=== PATIENT | female | born 1930 | race Caucasian/White ===

== ENCOUNTER 2017-07-22 06:43 | Inpatient (IN) | payer MEDICARE, OTHER ==
[~2017-07-22] VITALS: Ht 162.6 cm; Wt 79.4 kg
[2017-07-22 09:46] VITALS: BP 122/58; PULSE 62; RESP 18; TEMP 97.6; O2SAT 98
[2017-07-22] MEDS ORDERED: NALOXONE HCL 0.4 MG/ML AMP IV PUSH PRN (12:00)
[2017-07-22] MEDS ORDERED: BISACODYL 10 MG SUPP RECTAL PRN (12:00)
[2017-07-22] MEDS ORDERED: ONDANSETRON HCL 4 MG/2 ML VIAL IVP PRN (12:00)
[2017-07-22] MEDS ORDERED: MAGNESIUM HYDROXIDE SUSP 30 ML CUP PO PRN (12:00)
[2017-07-22] MEDS ORDERED: SODIUM CHLORIDE 0.9% FLUSH 10 ML FLUSH IV FLUSH PRN (12:00)
[2017-07-22] MEDS ORDERED: SENNOSIDES 8.6 MG TAB PO PRN (12:00)
--- NOTE | 2017-07-22 12:17 | HHI.HP ---
[facility] Service [facility] Primary Care Physician Unknown Admission Diagnosis Confusion Diagnoses: (1) Altered mental status (2) Abnormal urinalysis Chief Complaint: Confusion Travel History International Travel<30 Days: No Contact w/Intl Traveler <30 Da: No Traveled to Known Affected Are: No History of Present Illness This is a pleasant 87-year-old female patient with a known medical history of atrial fibrillation and history of CVA who presented to the ED with confusion. She arrived from her [facility] via private vehicle. Patient is seen in her room, awake and alert without confusion. Patient does admit to frequent UTIs in the past and typical presentation is confusion. She denies any dysuria. Does admit to poor appetite. She denies any recent fever, chills, shortness of breath, abdominal pain, nausea, vomiting or diarrhea. 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 Spoke to son and daughter in law later in the day who stated that she had a lengthy hospitalization at [facility] in [place] 2 months ago for UTI was discharged to rehab for a couple weeks ago and has recently returned home to her [facility] last week. She was given antibiotics and just finished them a week ago for UTI. Son states that her UTI is usually from E Coli and yeast. Patient usually does not have symptoms with UTIs except for confusion. Denies any dysuria. The family reports that patient usually has up to 12-15 recurrent UTIs per year. Review of Systems Constitutional: DENIES: Fever, Chills Eyes: DENIES: Diplopia Ears, nose, mouth, throat: DENIES: Hearing loss Respiratory: DENIES: Cough, Sputum production, Shortness of breath Cardiovascular: DENIES: Chest pain Gastrointestinal: DENIES: Abdominal pain, Black stools, Bloody stools, Constipation, Diarrhea, Nausea, Vomiting Immunologic/allergic: DENIES: Eczema Neurologic: DENIES: Abnormal gait Psychiatric: COMPLAINS OF: Confusion Except as stated in HPI: all other systems reviewed are Neg Past Family Social History Past Medical History Atrial fibrillation History of CVA 2011 Frequent urinary tract infections Past Surgical History Hysterectomy Reported Medications Needs updated medication reconciliation. Allergies: Coded Allergies: Sulfa (Sulfonamide Antibiotics) (Verified Allergy, Severe, 07/21/17) FACIAL SWELLING Active Ordered Medications Current Medications Medications (Trade) Dose Ordered Sig/Shobha Route Start Time Stop Time Status Last Admin Sodium Chloride 1,000 ml @ 75 mls/hr [id number] IV 07/22/17 11:55 UNV (NS Flush) 2 ml UNSCH PRN IV FLUSH 07/22/17 12:00 UNV (NS Flush) 2 ml BID IV FLUSH 07/22/17 21:00 UNV (Tylenol) 650 mg Q4H PRN PO 07/22/17 12:00 UNV (Zofran Inj) 4 mg Q6H PRN IVP 07/22/17 12:00 UNV (Narcan Inj) 0.4 mg UNSCH PRN IV PUSH 07/22/17 12:00 UNV (Kenyatta-Colace) 1 tab BID PO 07/22/17 21:00 UNV (Milk Of Magnesia Liq) 30 ml Q12H PRN PO 07/22/17 12:00 UNV (Senokot) 17.2 mg Q12H PRN PO 07/22/17 12:00 UNV (Dulcolax Supp) 10 mg DAILY PRN RECTAL 07/22/17 12:00 UNV (Lovenox Inj) 40 mg Q24H SQ 07/22/17 12:00 UNV Ceftriaxone Sodium 1000 mg/ Sodium Chloride 100 ml @ 200 mls/hr Q24H IV 07/22/17 12:15 UNV Family History Denies any significant family medical history. Social History Denies any current or previous tobacco use, alcohol use or illicit drug use. Physical Exam Vital Signs Vital Signs Date Time Temp Pulse Resp B/P (MAP) Pulse Ox O2 Delivery O2 Flow Rate FiO2 07/22/17 09:46 97.6 62 18 122/58 (79) 98 Physical Exam GENERAL: Well-nourished, well-developed patient in NAD. On room air SKIN: Warm and dry. No rash. HEAD: Normocephalic. Atraumatic. EYES: Pupils equal and round. No scleral icterus. No injection or drainage. ENT: No nasal bleeding or discharge. Mucous membranes pink and moist. NECK: Supple. Trachea midline. CARDIOVASCULAR: Regular rate and rhythm. S1, S2 noted. No murmur appreciated. RESPIRATORY: No accessory muscle use. Clear to auscultation. Breath sounds equal bilaterally. GASTROINTESTINAL: Abdomen soft, non-tender, nondistended. Normoactive bowel sounds x4. : Haider catheter NEUROLOGICAL: Awake and alert. No obvious cranial nerve deficits. Left upper and left lower extremities flaccid. Right upper and lower extremities 4/5. Normal speech. PSYCHIATRIC: Appropriate mood and affect; insight and judgment normal. Septic Shock Reassessment Septic shock perfusion: reassessment completed Caprini VTE Risk Assessment Caprini VTE Risk Assessment: Mod/High Risk (score >= 2) Caprini Risk Assessment Model Point Value = 1 Point Value = 2 Point Value = 3 Point Value = 5 Age 41-60 Minor surgery BMI > 25 kg/m2 Swollen legs Varicose veins or History of unexplained or recurrent spontaneous Oral contraceptives or hormone replacement Sepsis (< 1 month) Serious lung disease, including pneumonia (< 1 month) Abnormal pulmonary function Acute myocardial infarction Congestive heart failure (< 1 month) History of inflammatory bowel disease Medical patient at bed rest Age 61-74 Arthroscopic surgery Major open surgery (> 45 min) Laparoscopic surgery (> 45 min) Malignancy Confined to bed (> 72 hours) Immobilizing plaster cast Central venous access Age >= 75 History of VTE Family history of VTE Factor V Leiden Prothrombin [id number] Lupus anticoagulant Anticardiolipin antibodies Elevated serum homocysteine Heparin-induced thrombocytopenia Other congenital or acquired thrombophilia Stroke (< 1 month) Elective arthroplasty Hip, pelvis, or leg fracture Acute spinal cord injury (< 1 month) Prophylaxis Regimen Total Risk Factor Score Risk Level Prophylaxis Regimen 0-1 Low Early ambulation 2 Moderate Order ONE of the following: *Sequential Compression Device (SCD) *Heparin 5000 units SQ BID 3-4 Higher Order ONE of the following medications: *Heparin 5000 units SQ TID *Enoxaparin/Lovenox 40 mg SQ daily (WT < 150 kg, CrCl > 30 mL/min) *Enoxaparin/Lovenox 30 mg SQ daily (WT < 150 kg, CrCl > 10-29 mL/min) *Enoxaparin/Lovenox 30 mg SQ BID (WT < 150 kg, CrCl > 30 mL/min) AND/OR *Sequential Compression Device (SCD) 5 or more Highest Order ONE of the following medications: *Heparin 5000 units SQ TID (Preferred with Epidurals) *Enoxaparin/Lovenox 40 mg SQ daily (WT < 150 kg, CrCl > 30 mL/min) *Enoxaparin/Lovenox 30 mg SQ daily (WT < 150 kg, CrCl > 10-29 mL/min) *Enoxaparin/Lovenox 30 mg SQ BID (WT < 150 kg, CrCl > 30 mL/min) AND *Sequential Compression Device (SCD) Assessment and Plan Problem List: (1) Abnormal urinalysis ICD Code: R82.90 - Unspecified abnormal findings in urine Plan: Head CT was obtained and ED upon presentation, showing no acute abnormality. Confusion has resolved. Chest x-ray reviewed showing no acute abnormality. UA obtained which was abnormal, awaiting urine culture. Follow. Started on Rocephin IV until growth. Blood cultures pending, follow growth. Supplemental O2 as needed. Supportive care. Encourage by mouth intake. Continue IV fluids. Afebrile. Monitor for infection. WBC WNL. Vital signs stable (2) Altered mental status ICD Code: R41.82 - Altered mental status, unspecified Plan: Resolved. See treatment plan above. DVT prophylaxis: SCDs. Lovenox. Physician Certification 2 Midnight Certification Type: Admission for Inpatient Services Order for Inpatient Services The services are ordered in accordance with Medicare regulations or non- Medicare payer requirements, as applicable. In the case of services not specified as inpatient-only, they are appropriately provided as inpatient services in accordance with the 2-midnight benchmark. Estimated LOS (days): 2 2 days is the estimated time the patient will need to remain in the hospital, assuming treatment plan goals are met and no additional complications. Post-Hospital Plan: Not yet determined Janice Calderon Jul 22, 2017 12:17
[2017-07-22 13:00] VITALS: O2SAT 93
[2017-07-22] MEDS: ENOXAPARIN SODIUM 40 MG/0.4 ML SYRINGE SQ SCH (14:00)
[2017-07-22 14:03] VITALS: BP 113/47; PULSE 67; RESP 16; TEMP 96.7; O2SAT 96
[2017-07-22] MEDS: cefTRIAXone INJ 1,000 MG in SODIUM CHLORIDE 0.9% INJ 100 ML IV SCH (15:18)
[2017-07-22] MEDS: SODIUM CHLOR 0.45% 1000 ML INJ 1,000 ML IV SCH (15:19)
[2017-07-22 17:21] VITALS: BP 95/55; PULSE 65; RESP 16; TEMP 97; O2SAT 97
[2017-07-22 20:00] VITALS: BP 108/67; PULSE 79; RESP 18; TEMP 98.2; O2SAT 98
[2017-07-22] MEDS: DOCUSATE SODIUM 50 MG/SENNA 8.6 MG TAB PO SCH (20:03)
[2017-07-22] MEDS: SODIUM CHLORIDE 0.9% FLUSH 10 ML FLUSH IV FLUSH SCH (20:03)
[2017-07-22 20:32] VITALS: O2SAT 94
[2017-07-23] VITALS (7 sets, daily range): BP systolic 100–134; BP diastolic 50–68; PULSE 74–118; RESP 16–24; TEMP 97.4–100.8; O2SAT 94–98
[2017-07-23] MEDS ORDERED: ASPI-516 CHEW (01:52)
[2017-07-23] MEDS ORDERED: DULC5TAB PO (01:52)
[2017-07-23] MEDS ORDERED: CETI10 PO (01:52)
[2017-07-23] MEDS ORDERED: ACET-822 PO (01:52)
[2017-07-23] MEDS ORDERED: BUME1TAB PO (01:52)
[2017-07-23] MEDS ORDERED: VITA100064 PO (01:52)
[2017-07-23] MEDS ORDERED: METO50TA PO (01:52)
[2017-07-23] MEDS ORDERED: LIDO1PAD52 TOPICAL (01:52)
[2017-07-23] MEDS ORDERED: ATOR20TA15 PO (01:52)
[2017-07-23] MEDS ORDERED: LEXA20TA PO (01:52)
[2017-07-23] MEDS: SODIUM CHLOR 0.45% 1000 ML INJ 1,000 ML IV SCH ×2 (02:20→15:53)
[2017-07-23 08:07] LABS: AUTOMATED NEUTROPHIL # 3.5 TH/MM3 (1.8-7.7); BASOPHIL % 0.4 % (0.0-2.0); EOSINOPHIL # 0.2 TH/MM3 (0-0.4); EOSINOPHIL % 3.1 % (0.0-4.0); HEMATOCRIT 34.3 % (35.0-46.0); HEMOGLOBIN 10.8 GM/DL (11.6-15.3); LYMPH % 35.3 % (9.0-44.0); LYMPHOCYTE # 2.5 TH/MM3 (1.0-4.8); MEAN CELL VOLUME 90.8 FL (80.0-100.0); MEAN CORPUSCULAR HEMOGLOBIN 28.5 PG (27.0-34.0); MEAN CORPUSCULAR HGB CONC 31.4 % (32.0-36.0); MEAN PLATELET VOLUME 8.4 FL (7.0-11.0); MONO % 12.8 % (0.0-8.0); MONOCYTE # 0.9 TH/MM3 (0-0.9); NEUT % 48.4 % (16.0-70.0); PLATELET COUNT 242 TH/MM3 (150-450); RED BLOOD COUNT 3.78 MIL/MM3 (4.00-5.30); RED CELL DISTRIBUTION WIDTH 14.3 % (11.6-17.2); WHITE BLOOD COUNT 7.1 TH/MM3 (4.0-11.0)
[2017-07-23 08:31] LABS: BICARBONATE 29.1 MEQ/L (21.0-32.0)
[2017-07-23 08:34] LABS: CREATININE 0.72 MG/DL (0.50-1.00)
[2017-07-23] MEDS: DOCUSATE SODIUM 50 MG/SENNA 8.6 MG TAB PO SCH ×2 (08:56→21:29)
[2017-07-23] MEDS: SODIUM CHLORIDE 0.9% FLUSH 10 ML FLUSH IV FLUSH SCH ×2 (08:56→21:28)
--- NOTE | 2017-07-23 10:51 | HHI.PR ---
Subjective Remarks Follow-up UTI. Patient seen and examined, lying in bed comfortably on room air. In no apparent distress. Denies any acute events overnight. Does complain of some pain to her left lower extremity, this is chronic due to her disability. Vital signs are stable. Afebrile. Awaiting urine culture. On IV antibiotics. Objective Vitals Vital Signs Date Time Temp Pulse Resp B/P (MAP) Pulse Ox O2 Delivery O2 Flow Rate FiO2 07/23/17 08:00 97.9 79 24 118/56 (76) 96 07/23/17 04:00 98.7 74 18 115/55 (75) 94 07/23/17 00:00 97.4 76 16 118/56 (76) 97 07/22/17 20:32 94 21 07/22/17 20:00 98.2 79 18 108/67 (81) 98 07/22/17 17:21 97.0 65 16 95/55 (68) 97 07/22/17 14:03 96.7 67 16 113/47 (69) 96 07/22/17 13:00 93 21 I/O 07/22/17 07/22/17 07/22/17 07/23/17 07/23/17 07/23/17 07:00 15:00 23:00 07:00 15:00 23:00 Intake Total 500 ml 1000 ml Output Total 60 ml 600 ml Balance -60 ml -100 ml 1000 ml Intake Oral 500 ml IV Total 1000 ml Output Urine Total 60 ml 600 ml Result Diagram: 07/23/1736 07/23/17 0736 Objective Remarks GENERAL: Well-nourished, well-developed patient in NAD. On room air SKIN: Warm and dry. No rash. HEAD: Normocephalic. Atraumatic. EYES: Pupils equal and round. No scleral icterus. No injection or drainage. ENT: No nasal bleeding or discharge. Mucous membranes pink and moist. NECK: Supple. Trachea midline. CARDIOVASCULAR: Regular rate and rhythm. S1, S2 noted. No murmur appreciated. RESPIRATORY: No accessory muscle use. Clear to auscultation. Breath sounds equal bilaterally. GASTROINTESTINAL: Abdomen soft, non-tender, nondistended. Normoactive bowel sounds x4. : Haider catheter NEUROLOGICAL: Awake and alert. No obvious cranial nerve deficits. Left upper and left lower extremities flaccid. Right upper and lower extremities 4/5. Normal speech. PSYCHIATRIC: Appropriate mood and affect; insight and judgment normal. A/P Problem List: (1) Abnormal urinalysis ICD Code: R82.90 - Unspecified abnormal findings in urine Plan: Head CT was obtained and ED upon presentation, showing no acute abnormality. Confusion has resolved. Chest x-ray reviewed showing no acute abnormality. UA obtained which was abnormal, awaiting urine culture. Follow. Started on Rocephin IV until growth. Blood cultures pending, follow growth. Supplemental O2 as needed. Supportive care. Encourage by mouth intake. Continue IV fluids. Afebrile. Monitor for infection. WBC WNL. Vital signs stable. Requested records from previous hospitalization. (2) Altered mental status ICD Code: R41.82 - Altered mental status, unspecified Plan: Resolved. See treatment plan above. DVT prophylaxis: SCDs. Lovenox. Janice Calderon Jul 23, 2017 10:51
[2017-07-23] MEDS: ASPIRIN 81 MG CHEW TAB CHEW SCH (11:51)
[2017-07-23] MEDS: BUMETANIDE 1 MG TAB PO SCH (11:51)
[2017-07-23] MEDS: LIDOCAINE HCL 5% PATCH T-DERMAL SCH (11:52)
[2017-07-23] MEDS: cefTRIAXone INJ 1,000 MG in SODIUM CHLORIDE 0.9% INJ 100 ML IV SCH (14:18)
[2017-07-23] MEDS: ENOXAPARIN SODIUM 40 MG/0.4 ML SYRINGE SQ SCH (14:18)
[2017-07-23] MEDS: METOPROLOL TARTRATE 50 MG TAB PO SCH (21:28)
[2017-07-23] MEDS: ATORVASTATIN 20 MG TAB PO SCH (21:29)
[2017-07-23] MEDS: ACETAMINOPHEN 325 MG TAB PO PRN (22:27)
[2017-07-23] MEDS ORDERED: diphenhydrAMINE HCL 25 MG CAP PO ONE (23:00)
[2017-07-24] VITALS (8 sets, daily range): BP systolic 118–142; BP diastolic 56–80; PULSE 71–111; RESP 18–20; TEMP 97.1–99.2; O2SAT 95–98
[2017-07-24] MEDS: SODIUM CHLOR 0.45% 1000 ML INJ 1,000 ML IV SCH ×2 (04:46→18:02)
[2017-07-24] MEDS: METOPROLOL TARTRATE 50 MG TAB PO SCH ×2 (05:37→22:22)
[2017-07-24] MEDS: ACETAMINOPHEN 325 MG TAB PO PRN (05:38)
[2017-07-24] MEDS: CHOLECALCIFEROL (VIT D3) 1000 UNIT TAB PO SCH (08:17)
[2017-07-24] MEDS: CETIRIZINE HCL 10 MG TAB PO SCH (08:17)
[2017-07-24] MEDS: ASPIRIN 81 MG CHEW TAB CHEW SCH (08:17)
[2017-07-24] MEDS: DOCUSATE SODIUM 50 MG/SENNA 8.6 MG TAB PO SCH ×2 (08:17→22:22)
[2017-07-24] MEDS: BUMETANIDE 1 MG TAB PO SCH (08:18)
[2017-07-24] MEDS: SODIUM CHLORIDE 0.9% FLUSH 10 ML FLUSH IV FLUSH SCH ×2 (08:18→22:23)
[2017-07-24] MEDS: ESCITALOPRAM OXALATE 20 MG TAB PO SCH (08:26)
[2017-07-24] MEDS: LIDOCAINE HCL 5% PATCH T-DERMAL SCH (08:27)
--- NOTE | 2017-07-24 12:38 | HHI.PR ---
Subjective Remarks Follow-up UTI. Patient seen and examined, lying in bed with active hallucinations. Patient believes it was in the room, she was talking to them. Eventually during the conversation patient was able to reorient to person, place and time. Vital signs are stable. No acute events overnight. Continued IV fluids. Urine culture no growth, DC IV antibiotics. Objective Vitals Vital Signs Date Time Temp Pulse Resp B/P (MAP) Pulse Ox O2 Delivery O2 Flow Rate FiO2 07/24/17 12:00 97.2 75 20 125/57 (79) 96 07/24/17 08:00 97.4 71 20 134/66 (88) 98 07/24/17 04:00 97.1 111 18 138/80 (99) 95 07/24/17 00:00 97.6 77 20 118/56 (76) 96 07/23/17 21:11 94 21 07/23/17 20:00 99.0 118 20 134/58 (83) 95 07/23/17 20:00 111 07/23/17 16:00 100.8 111 16 115/68 (84) 94 I/O 07/23/17 07/23/17 07/23/17 07/24/17 07/24/17 07/24/17 06:59 14:59 22:59 06:59 14:59 22:59 Intake Total 1000 ml 760 ml 720 ml 1240 ml Output Total 1350 ml 1200 ml 1000 ml Balance 1000 ml -590 ml -480 ml 240 ml Intake Oral 660 ml 120 ml 240 ml IV Total 1000 ml 100 ml 600 ml 1000 ml Output Urine Total 1350 ml 1200 ml 1000 ml # Voids 5 # Bowel Movements 0 Result Diagram: 07/23/17 0736 07/23/17 0736 Objective Remarks GENERAL: Well-nourished, well-developed patient in NAD. On room air SKIN: Warm and dry. No rash. HEAD: Normocephalic. Atraumatic. EYES: Pupils equal and round. No scleral icterus. No injection or drainage. ENT: No nasal bleeding or discharge. Mucous membranes pink and moist. NECK: Supple. Trachea midline. CARDIOVASCULAR: Regular rate and rhythm. S1, S2 noted. No murmur appreciated. RESPIRATORY: No accessory muscle use. Clear to auscultation. Breath sounds equal bilaterally. GASTROINTESTINAL: Abdomen soft, non-tender, nondistended. Normoactive bowel sounds x4. : Haider catheter NEUROLOGICAL: Awake and alert. No obvious cranial nerve deficits. Left upper and left lower extremities flaccid. Right upper and lower extremities 4/5. Normal speech. A/P Problem List: (1) Abnormal urinalysis ICD Code: R82.90 - Unspecified abnormal findings in urine Plan: Head CT was obtained and ED upon presentation, showing no acute abnormality. Confusion has resolved. Chest x-ray reviewed showing no acute abnormality. UA obtained which was abnormal. Started on Rocephin IV until growth. Blood cultures pending, follow growth. Supplemental O2 as needed. Supportive care. Encourage by mouth intake. Continue IV fluids. Afebrile. Monitor for infection. WBC WNL. Vital signs stable. Requested records from previous hospitalization. Awaiting records. Urine culture no growth. DC IV antibiotics. (2) Altered mental status ICD Code: R41.82 - Altered mental status, unspecified Plan: See treatment plan above. Patient with hallucinations today. Will add TSH, magnesium and folate to labs today. Follow. Head CT on presentation, which was unremarkable. Possibly secondary to early onset dementia. DVT prophylaxis: SCDs. Lovenox. Janice Calderon Jul 24, 2017 12:38
[2017-07-24 13:53] LABS: AUTOMATED NEUTROPHIL # 5.4 TH/MM3 (1.8-7.7); BASOPHIL # 0.1 TH/MM3 (0-0.2); BASOPHIL % 0.8 % (0.0-2.0); EOSINOPHIL % 0.6 % (0.0-4.0); HEMOGLOBIN 11.1 GM/DL (11.6-15.3); LYMPH % 24.1 % (9.0-44.0); MEAN CELL VOLUME 89.6 FL (80.0-100.0); MEAN CORPUSCULAR HEMOGLOBIN 28.6 PG (27.0-34.0); MEAN CORPUSCULAR HGB CONC 31.9 % (32.0-36.0); MEAN PLATELET VOLUME 8.4 FL (7.0-11.0); MONO % 9.4 % (0.0-8.0); MONOCYTE # 0.8 TH/MM3 (0-0.9); NEUT % 65.1 % (16.0-70.0); PLATELET COUNT 295 TH/MM3 (150-450); RED CELL DISTRIBUTION WIDTH 13.7 % (11.6-17.2); WHITE BLOOD COUNT 8.3 TH/MM3 (4.0-11.0)
[2017-07-24] MEDS: ENOXAPARIN SODIUM 40 MG/0.4 ML SYRINGE SQ SCH (13:57)
[2017-07-24 14:06] LABS: BICARBONATE 28.5 MEQ/L (21.0-32.0); MAGNESIUM 2.3 MG/DL (1.5-2.5)
[2017-07-24 14:10] LABS: CREATININE 0.77 MG/DL (0.50-1.00)
[2017-07-24 16:31] LABS: FOLATE 17.7 NG/ML (3.1-17.5)
[2017-07-24] MEDS: ATORVASTATIN 20 MG TAB PO SCH (22:22)
[2017-07-25] VITALS: BP 111/49; PULSE 77; RESP 20; TEMP 98.1; O2SAT 98
[2017-07-25 04:00] VITALS: BP 133/62; PULSE 88; RESP 20; TEMP 98.6; O2SAT 94
[2017-07-25 08:00] VITALS: BP 151/79; PULSE 86; RESP 20; TEMP 97.2; O2SAT 97
[2017-07-25 08:38] VITALS: O2SAT 96
[2017-07-25] MEDS: CHOLECALCIFEROL (VIT D3) 1000 UNIT TAB PO SCH (09:00)
[2017-07-25] MEDS: SODIUM CHLORIDE 0.9% FLUSH 10 ML FLUSH IV FLUSH SCH (09:00)
[2017-07-25] MEDS: ESCITALOPRAM OXALATE 20 MG TAB PO SCH (09:00)
[2017-07-25] MEDS: CETIRIZINE HCL 10 MG TAB PO SCH (09:00)
[2017-07-25] MEDS: DOCUSATE SODIUM 50 MG/SENNA 8.6 MG TAB PO SCH (09:00)
[2017-07-25] MEDS: METOPROLOL TARTRATE 50 MG TAB PO SCH (09:00)
[2017-07-25] MEDS: BUMETANIDE 1 MG TAB PO SCH (09:00)
[2017-07-25] MEDS: SODIUM CHLOR 0.45% 1000 ML INJ 1,000 ML IV SCH (09:00)
[2017-07-25] MEDS: ASPIRIN 81 MG CHEW TAB CHEW SCH (09:00)
[2017-07-25] MEDS: LIDOCAINE HCL 5% PATCH T-DERMAL SCH (09:01)
[2017-07-25 12:00] VITALS: BP 124/68; PULSE 68; RESP 20; TEMP 97.4; O2SAT 96
[2017-07-25] MEDS ORDERED: GADODIAMIDE PF 287 MG/ML 5 ML VIAL (for RAD MRI) IV PUSH ONE (12:30)
--- NOTE | 2017-07-25 12:35 | HHI.PR ---
Subjective Remarks Follow-up UTI and confusion. Patient seen and examined, lying in bed comfortably in no apparent distress. Patient is still confused, to situation and place. Awaiting to transfer to MRI. Denies any acute events overnight. Vital signs are stable overnight. Afebrile. Denies pain. Objective Vitals Vital Signs Date Time Temp Pulse Resp B/P (MAP) Pulse Ox O2 Delivery O2 Flow Rate FiO2 07/25/17 08:38 96 21 07/25/17 08:00 97.2 86 20 151/79 (103) 97 07/25/17 04:00 98.6 88 20 133/62 (85) 94 07/25/17 00:00 98.1 77 20 111/49 (69) 98 07/24/17 23:37 96 21 07/24/17 20:00 99.2 85 20 142/73 (96) 98 07/24/17 20:00 100 07/24/17 16:18 96 21 07/24/17 16:00 98.3 81 20 140/65 (90) 95 I/O 07/24/17 07/24/17 07/24/17 07/25/17 07/25/17 07/25/17 07:00 15:00 23:00 07:00 15:00 23:00 Intake Total 1240 ml 780 ml 935 ml Output Total 1000 ml 1200 ml 1000 ml Balance 240 ml -420 ml -65 ml Intake Oral 240 ml 780 ml 240 ml IV Total 1000 ml 695 ml Output Urine Total 1000 ml 1200 ml 1000 ml # Voids 5 # Bowel Movements 0 0 Result Diagram: 07/24/17 1337 07/24/17 1337 Objective Remarks GENERAL: Well-nourished, well-developed patient in NAD. On room air pleasantly confused. SKIN: Warm and dry. No rash. HEAD: Normocephalic. Atraumatic. EYES: Pupils equal and round. No scleral icterus. No injection or drainage. ENT: No nasal bleeding or discharge. Mucous membranes pink and moist. NECK: Supple. Trachea midline. CARDIOVASCULAR: Regular rate and rhythm. S1, S2 noted. No murmur appreciated. RESPIRATORY: No accessory muscle use. Clear to auscultation. Breath sounds equal bilaterally. GASTROINTESTINAL: Abdomen soft, non-tender, nondistended. Normoactive bowel sounds x4. : Haider catheter NEUROLOGICAL: Awake and alert. No obvious cranial nerve deficits. Left upper and left lower extremities flaccid. Right upper and lower extremities 4/5. Normal speech. A/P Problem List: (1) Abnormal urinalysis ICD Code: R82.90 - Unspecified abnormal findings in urine Plan: Head CT was obtained and ED upon presentation, showing no acute abnormality. Chest x-ray reviewed showing no acute abnormality. Urine culture with no growth 48 hours. IV antibiotics DC'd. Blood cultures pending, follow growth. Supplemental O2 as needed, comfortable on room air. Supportive care. Encourage by mouth intake, tolerating well. Continue IV fluids. Afebrile. Monitor for infection. WBC WNL. Vital signs stable. Confusion is still present, obtaining MRI and labs. (2) Altered mental status ICD Code: R41.82 - Altered mental status, unspecified Plan: See treatment plan above. No hallucinations today, although patient is still confused situation and place. TSH normal. Magnesium normal. Folate elevated. Head CT on presentation, which was unremarkable. Possibly secondary to early onset dementia. Will obtain MRI. Follow. DVT prophylaxis: SCDs. Lovenox. Assessment and Plan MRI obtained today, reviewed and showing no acute hemorrhage, mass or acute infarction. There is a large area of encephalomalacia involving the right parietal lobe with surrounding gliosis. Discharge Planning Spoke to family at length regarding discharge planning to [facility]. Patient's family states they have center center for her and will likely transfer her to the dementia side of the [facility]. Patient's family is aware that this may be early onset dementia and may be baseline for patient. Will continue to monitor. Follow MRI. Possible discharge today. 1535 patient's family updated about the MRI results. No further workup. Labs are normal. Will discharge today to [facility]. With recommendations to follow-up with neurology regarding possible new onset of dementia. UTI is resolved. Family is understanding above plan of care. Vitals are stable at this time. Started on low-dose Seroquel for presence of intermittent hallucinations. Would like follow-up with neurology in the outpatient setting. Janice Calderon Jul 25, 2017 12:34
--- NOTE | 2017-07-25 14:00 | RADRPT ---
EXAM DATE/TIME: 07/25/2017 12:38 [facility] COMPARISON: CT BRAIN W/O CONTRAST, July 21, 2017, 23:48. INDICATIONS : Confusion. Altered mental status and abnormal CT demonstrating focal encephalomalacia from remote cer ebral vascular accident CONTRAST: 15 cc Omniscan (gadodiamide) IV MEDICAL HISTORY : Stroke SURGICAL HISTORY : Hysterectomy. ENCOUNTER: Initial ACUITY: 3 day PAIN SCORE: 0/10 LOCATION: head TECHNIQUE: Multiplanar, multisequence MRI of the brain was performed both prior to and following the administrat ion of paramagnetic contrast. FINDINGS: CEREBRUM: The ventricles are normal for age with moderate atrophic change. A large area of encephalomalacia is again noted involving the right parietal lobes with surrounding gliosis. No evidence of midline shift , mass lesion, hemorrhage or acute infarction. No extraaxial fluid collections are seen. The pituit jael gland and suprasellar cistern are normal in configuration. WHITE MATTER: No significant signal abnormalities are seen in the white matter. POSTERIOR FOSSA: The cerebellum and brainstem are intact. The 4th ventricle is midline. The cerebellopontine angle is unremarkable. The cerebellar tonsils are normal in position. DIFFUSION IMAGING: No focal areas of restricted diffusion are seen. No evidence of acute infarction. EXTRACRANIAL: The visualized portions of the orbits and paranasal sinuses are unremarkable. POST-CONTRAST: No abnormal areas of parenchymal or dural enhancement. No evidence of blood-brain barrier breakdown. CONCLUSION: 1. No acute hemorrhage, mass or acute infarction. 2. 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 Chago House MD on July 25, 2017 at 13:53 Board Certified Radiologist. This report was verified electronically.
[2017-07-25] MEDS: ENOXAPARIN SODIUM 40 MG/0.4 ML SYRINGE SQ SCH (14:04)
--- NOTE | 2017-07-25 14:53 | HHI.DS ---
Discharge Summary Admission Date Jul 22, 2017 at 06:53 Discharge Date: Jul 25, 2017 Admitting Diagnosis Confusion (1) Abnormal urinalysis ICD Code: R82.90 - Unspecified abnormal findings in urine (2) Altered mental status ICD Code: R41.82 - Altered mental status, unspecified Procedures . Brief History - From Admission This is a pleasant 87-year-old female patient with a known medical history of atrial fibrillation and history of CVA who presented to the ED with confusion. She arrived from her [facility] via private vehicle. Patient is seen in her room, awake and alert without confusion. Patient does admit to frequent UTIs in the past and typical presentation is confusion. She denies any dysuria. Does admit to poor appetite. She denies any recent fever, chills, shortness of breath, abdominal pain, nausea, vomiting or diarrhea. 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 Spoke to son and daughter in law later in the day who stated that she had a lengthy hospitalization at [facility] in [place] 2 months ago for UTI was discharged to rehab for a couple weeks ago and has recently returned home to her [place] last week. She was given antibiotics and just finished them a week ago for UTI. Son states that her UTI is usually from E Coli and yeast. Patient usually does not have symptoms with UTIs except for confusion. Denies any dysuria. The family reports that patient usually has up to 12-15 recurrent UTIs per year. CBC/BMP: 07/24/17 1337 07/24/17 1337 Significant Findings Laboratory Tests Test 07/23/17 07:36 07/24/17 13:37 Red Blood Count 3.78 MIL/MM3 (4.00-5.30) 3.90 MIL/MM3 (4.00-5.30) Hemoglobin 10.8 GM/DL (11.6-15.3) 11.1 GM/DL (11.6-15.3) Hematocrit 34.3 % (35.0-46.0) Mean Corpuscular Hemoglobin Concent 31.4 % (32.0-36.0) 31.9 % (32.0-36.0) Monocytes (%) (Auto) 12.8 % (0.0-8.0) 9.4 % (0.0-8.0) Estimat Glomerular Filtration Rate 76 ML/MIN (>89) 71 ML/MIN (>89) Random Glucose 125 MG/DL (74-106) Folate 17.7 NG/ML (3.1-17.5) Imaging Last Impressions Brain MRI 07/25/17 0000 Signed Impressions: Service Date/Time: Tuesday, July 25, 2017 12:38 - CONCLUSION: 1. No acute hemorrhage, mass or acute infarction. 2. 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 Chago House MD PE at Discharge GENERAL: Well-nourished, well-developed patient in NAD. On room air pleasantly confused. SKIN: Warm and dry. No rash. HEAD: Normocephalic. Atraumatic. EYES: Pupils equal and round. No scleral icterus. No injection or drainage. ENT: No nasal bleeding or discharge. Mucous membranes pink and moist. NECK: Supple. Trachea midline. CARDIOVASCULAR: Regular rate and rhythm. S1, S2 noted. No murmur appreciated. RESPIRATORY: No accessory muscle use. Clear to auscultation. Breath sounds equal bilaterally. GASTROINTESTINAL: Abdomen soft, non-tender, nondistended. Normoactive bowel sounds x4. : Ha[place] catheter NEUROLOGICAL: Awake and alert. No obvious cranial nerve deficits. Left upper and left lower extremities flaccid. Right upper and lower extremities 4/5. Normal speech. Hospital Course 87-year-old who presented with confusion. UA was abnormal, urine culture grew no growth. Was placed on IV antibiotics. Blood cultures were negative to growth. Patient was given IV fluids. Head CT was done on presentation which was unremarkable. TSH was normal magnesium normal; folate level elevated. Patient has been afebrile throughout her stay. Lab work has been unremarkable. White blood cell count normal. MRI of the brain was performed showing no acute hemorrhage, mass or acute infarction. There was a large area of encephalomalacia involving the right parietal lobe with surrounding gliosis. Patient's family updated about the MRI results. No further workup. Labs are normal. Will discharge today to [facility]. With recommendations to follow-up with neurology regarding possible new onset of dementia. UTI is resolved. Family is understanding above plan of care. Vitals are stable at this time. Started on low-dose Seroquel for presence of intermittent hallucinations. Would like follow-up with neurology in the outpatient setting. Pt Condition on Discharge: Stable Discharge Disposition: [facility] Discharge Time: > 30 minutes Discharge Instructions DIET: Follow Instructions for: Heart Healthy Diet Speech Therapy-Diet Recommends: Regular Activities you can perform: Regular-No Restrictions Follow up Referrals: Neurology - 1 Week PCP Follow-up - 1 Week New Medications: Quetiapine (Seroquel) 25 Mg Tab 12.5 MG PO DAILY for Agitation for 30 Days, #15 TAB Continued Medications: Acetaminophen (Tylenol Extra Strength) 500 Mg Tablet MG PO Q12HR for Pain Aspirin (Aspirin) 81 Mg Chew 81 MG CHEW DAILY, TAB 0 Refills Atorvastatin (Atorvastatin) 20 Mg Tab 20 MG PO HS for Cholesterol Management, #30 TAB [address] (Dulcolax DR) 5 Mg Tabdr 5 MG PO EVERY OTHER DAY PRN for CONSTIPATION, #30 TAB 0 Refills Bumetanide (Bumetanide) 1 Mg Tab 1 MG PO DAILY, #30 TAB 0 Refills Cetirizine (Cetirizine) 10 Mg Tab 10 MG PO DAILY for Allergies, TAB 0 Refills Cholecalciferol (Vitamin D3) 1,000 Unit Tab 1000 UNITS PO DAILY for Nutritional Supplement, #1 BOTTLE 0 Refills Escitalopram (Lexapro) 20 Mg Tab 20 MG PO DAILY, #30 TAB 0 Refills Lidocaine Patch 12 HR (Lidocaine Patch 12 HR) 5 % Patch 1 PATCH TOPICAL DAILY for Pain Management, #1 BOX 0 Refills Remove patch after 12 hours Metoprolol Tartrate (Metoprolol Tartrate) 50 Mg Tab 50 MG PO BID, #60 TAB 0 Refills Janice Calderon Jul 25, 2017 14:53
[2017-07-25] MEDS ORDERED: SERO25TA PO (14:54)
[2017-07-25] MEDS ORDERED: PILL SPLITTER OTHER PRN (15:00)
[2017-07-25] MEDS ORDERED: QUEtiapine FUMARATE 25 MG TAB PO SCH (15:00)
[2017-07-25 16:00] VITALS: BP 120/60; PULSE 79; RESP 20; TEMP 97.6; O2SAT 97
== END 2017-07-25 20:00 | DRG 884 ==
LOC: PHEDDLT 06:43 → PH3A 06:53
PROVIDERS: ADMIT Hospitalist; ATTEND Hospitalist
DX: F03.90 Unspecified dementia, unspecified severity, without behavioral disturbance, psychotic disturbance, mood disturbance, and anxiety (principal); G93.89 Other specified disorders of brain; I69.354 Hemiplegia and hemiparesis following cerebral infarction affecting left non-dominant side; R44.3 Hallucinations, unspecified; R82.90 Unspecified abnormal findings in urine; I48.91 Unspecified atrial fibrillation; R63.0 Anorexia; Z87.440 Personal history of urinary (tract) infections; Z88.2 Allergy status to sulfonamides
CPT/HCPCS: 70450; 70553; 71045; 80048; 80053; 81001; 82746; 83735; 84443; 84484; 85025; 87040; 87077; 87086; 87186; 87205; 93005; 96374; A9579; J0696; J1650